=== PATIENT | male | born 1955 | race Caucasian/White ===

== ENCOUNTER 2017-04-04 07:28 | Outpatient (CLI) | payer BC ==
[~2017-04-04] VITALS: Ht 175.3 cm; Wt 104.5 kg
--- NOTE | ~2017-04-04 | OP ---
PATIENT NAME: NANO SOLORZANO MEDICAL RECORD: [id number] :51 LOCATION:[facility] ADMISSION DATE: SURGEON: CAMILO OTERO MD DATE OF OPERATION: 04/04/2017 PROCEDURES: 1. PTCA stent LAD. 2. Intravascular ultrasound of the LAD. 3. Left heart catheterization. 4. Selective coronary angiography. 5. Left ventriculogram. INDICATION: Angina and coronary artery disease. PROCEDURE IN DETAIL: After informed consent was obtained and after detailed explanation of risks, benefits as well as alternative therapies, the patient elected to proceed with angiogram and angioplasty. The right femoral area was prepped and draped in normal sterile fashion. The right femoral artery was cannulated via modified Seldinger technique with placement of 6-Samoan sheath. All catheters exchanged through this sheath. FINDINGS: Left ventriculogram was performed in standard 30-degree HAINES view, reveals good cardiac wall motion throughout all segments. Overall ejection fraction estimated at 60%. SELECTIVE CORONARY ANGIOGRAPHY: 1. Left main showed no significant angiographic disease. 2. Left anterior descending has previously placed stent. This is widely patent. However, after this, there is a greater than 70% stenosis confirmed by intravascular ultrasound. 3. Left circumflex has mild irregularities, no flow-limiting stenosis. 4. The right coronary has previously placed stent. This is widely patent with no significant restenosis. No disease elsewise throughout. PTCA STENT OF THE LAD: The stent used was a 2.5 x 22 mm Integrity taken to 17 atmospheres. Result was 0% residual stenosis. OVERALL IMPRESSION: Successful percutaneous transluminal coronary angioplasty stent of the left anterior descending going from greater than 70% initial stenosis to 0% residual stenosis. TRANSINT:[id number] Voice Confirmation ID: [id number] DOCUMENT ID: [id number] CAMILO OTERO MD at 1800 CC: [id number] DICTATION DATE: 04/04/17 0940 HEEL VARNISHER: 04/04/17 1200 DEP CLI 04/04/[address] [address]
--- NOTE | ~2017-04-04 | HEMODYNAMI ---
PATIENT:NANO SOLORZANO MEDICAL RECORD: [id number] : 51 [id number] ADMISSION DATE: 04/04/17 Generatedon:04/04/20179:43 Patient name: NANO SOLORZANO Patient #: [id number] SSN: : 1955 Date of study: 04/04/2017 Page: Of Hemodynamic Procedure Report Patient Data Patient Demographics Procedure consent was obtained First Name: NANO Gender: Male Last Name: JEANINE : 1955 Middle Initial: C Age: 61 year(s) Patient #: [id number] Race: Unknown Additional ID: [id number] Contact details Address: [address] [place] [address] State: [place] City: [facility] Zip code: [address] Past Medical History Allergies Allergen Reaction Date Comments Reported Other allergy 04/04/2017 PRAVASTATIN Admission Admission Data Admission Date: 04/04/2017 Admission Time: 7:28 Height (in.): 5.9 BSA: 0.38 (m2) Height (cm.): 14.99 BMI: 5008.94 (kg/m2) Weight (lbs.): 248 Weight (kg.): 112.49 Lab Results Lab Result Date: 04/04/2017 Lab Result Time: 8:00 Biochemistry Name Units Result Min Max BUN mg/dl 16 --(---*)-- 7 18 Creatinine mg/dl 1.4 --(----)*- 0.6 1.3 Procedure Procedure Types Cath Procedure Diagnostic Procedure LHC LH w/Coronaries FFR/IVUS Intra-Coronary IVUS Initial PCI Procedure Coronary Stent Coronary Stent Initial Miscellaneous Procedures Moderate Sedation up to 15 minutes Procedure Description Procedure Date Procedure Date: 04/04/2017 Procedure Start Time: 9:24 Procedure End Time: 9:43 Procedure Staff Name Function Lopez Marcano MD Performing Physician Destiny Taylor RT Monitor Anshu Jarquin RT Scrub Idris Tristan RN Nurse Procedure Data Cath Procedure Fluoroscopy Diagnostic fluoroscopy Total fluoroscopy dose: 750 dose: 750 mGy mGy Contrast Material Contrast Material Type Amount (ml) Isovue 300 107 Entry Location Entry Primary Successful Side Size Upsize Upsize Entry Closure Succes sful Closure Location (Fr) 1 (Fr) 2 (Fr) Remarks Device Remarks Femoral Right 5 Fr 6 Fr Exoseal artery Short Estimated blood loss: 10 ml Diagnostic catheters Device Type Used For End Catheter Placement MULTIPACK Pigtail 5 Fr Procedure catheter MULTIPACK JL 4.0 5Fr Procedure catheter MULTIPACK 3DRC 5Fr Procedure catheter Procedure Complications No complications Procedure Medications Medication Administration Route Dosage Oxygen NC 2 l/min Lidocaine 2% added to field 20 Heparin Flush Bag added to field 2 bags (1000units/500ml NS) 0.9% NaCl I.V. 100 ml/hr Versed I.V. 1 mg Fentanyl I.V. 50 mcg Versed I.V. 1 mg Fentanyl I.V. 50 mcg Heparin Bolus I.V. 4000 units Integrilin (Bolus I.V. 9.5 ml 2mg/ml) Versed I.V. 2 mg Plavix P.O. 600 mg Hemodynamics Rest BSA: 0.38 (m2) HGB: 16.2 (g/dl) O2 Consumption: Estimated: 42.63 (ml/min) O2 Con sumption indexed: Estimated:112.18 (ml/min/m) Heart Rate: 57 (bpm) Snapshots Pre Cath Intra NCS Post Cath Vital Signs Time Heart Resp SPO2 etCO2 NIBP (mmHg) Rhythm Pain Sedation Rate (ipm) (%) (mmHg) Status Level (bpm) 9:18:59 70 20 96 24.3 145/80(115) NSR 0 (11) 10(A) , No pain 9:23:39 73 19 96 0 130/70(91) NSR 0 (11) 10(A) , No pain 9:28:22 72 17 94 37.3 125/76(106) NSR 0 (11) 9(A) , No pain 9:33:05 72 20 96 26.6 125/75(94) NSR 0 (11) 9(A) , No pain 9:37:45 73 18 95 23.6 129/77(94) NSR 0 (11) 9(A) , No pain 9:42:28 73 15 96 27.4 129/78(100) NSR 0 (11) 10(A) , No pain Medications Time Medication Route Dose Verified Delivered Reason Notes Effectiveness by by 9:18:55 Oxygen NC 2 Lopez Washburnie used for l/min Jeet Tristan RN procedure 9:19:02 Lidocaine 2% added 20ml Lopezvalery Marroquin for local to vial Jeet Marcano MD anesthetic field 9:20:57 Heparin Flush added 2 Lopezvalery Marroquin used for Bag to bags Jeet Marcano MD procedure (1000units/500ml field NS) 9:21:06 0.9% NaCl I.V. 100 Lopez Steinberg Per physician ml/hr Jeet Tristan RN 9:23:32 Versed I.V. 1 mg Lopez Steinberg for sedation Jeet Tristan RN 9:23:38 Fentanyl I.V. 50 Lopez Steinberg for sedation mcg Jeet Tristan RN 9:26:38 Versed I.V. 1 mg Lopez Steinberg for sedation Jeet Tristan RN 9:26:42 Fentanyl I.V. 50 Lopez Steinberg for sedation mcg Jeet Tristan RN 9:30:05 Heparin Bolus I.V. 4000 Lopez Steinberg for verifie d units Jeet Tristan RN anticoagulation with dr marcano 9:32:37 Versed I.V. 2 mg Lopez Steinberg for sedation Jeet Tristan RN 9:35:34 Integrilin I.V. 9.5 Lopez Steinberg for wasted (Bolus 2mg/ml) ml Jeet Tristan RN antiplatelet 0.5 ml therapy of vial 9:42:53 Plavix P.O. 600 Lopez Steinberg for mg Jeet Tristan RN antiplatelet therapy Procedure Log Time Note 8:59:33 Patient Height : 5.9 inches 8:59:37 Patient Weight : 248 lbs 8:59:44 Idris Tristan RN sent for patient. Start room use. 8:59:45 Time tracking: Regular hours 8:59:49 Plan of Care:Hemodynamics will remain stable., Cardiac rhythm will remain stable., Comfort level will be maintained., Respiratory function will remain adequate., Patient/ family verbilizes understanding of procedure., Procedure tolerated without complication., Recovers from procedure without complications.. 8:59:52 Signed procedure consent form obtained from patient. 9:00:39 H&P Date Dictated: 03/14/2017 Within 30 days and on chart., H&P Addendum completed by physician on day of procedure. (MUST COMPLETE FOR ALL OUTPATIENTS). 9:00:56 Patient allergic to Other allergyPRAVASTATIN 9:01:32 Lab Result : Hemoglobin 16.2 g/dl 9:03:09 Lab Result : BUN 16 mg/dl 9:03:09 Lab Result : Creatinine 1.4 mg/dl 9:03:12 Lab results completed and on chart. 9:06:19 Patient received from Pre/Post Procedure Room to CCL 1 Alert and oriented. Tansferred to table in Supine position. 9:06:21 Warm blankets applied, and claudio hugger turned on for patient comfort. 9:06:21 Correct patient and procedure confirmed by team. 9:06:21 ECG and BP/O2 sat monitors applied to patient. 9:18:06 Vital chart was started 9:18:09 Baseline sample Acquired. 9:18:12 Rhythm: sinus rhythm 9:18:13 Full Disclosure recording started 9:18:14 Pre-procedure instructions explained to patient. 9:18:14 Pre-op teaching completed and patient verbalized understanding. 9:18:15 Family in patients room. 9:18:17 Patient NPO since Midnight. 9:18:20 Is patient on blood thinner?Yes 9:18:23 ACC The patient was administered the following blood thiners within the last 24 hours: Coumadin 9:18:53 held since 18 INR 1 9:18:55 Oxygen 2 l/min NC was administered by Idris Tristan RN; used for procedure; 9:18:56 Patient diabetic? No. 9:18:59 Previous problem with sedation/anesthesia? No ? 9:19:01 Snore? Yes 9:19:02 Lidocaine 2% 20ml vial added to field was administered by Lopez Marcano MD; for local anesthetic; 9:19:02 Sleep apnea? No 9:19:03 Deviated septum? No 9:19:04 Opens mouth fully? Yes 9:19:05 Sticks out tongue? Yes 9:19:07 Airway obstruction? No ? 9:19:09 Dentures? No ? 9:19:16 Pre procedure: right dorsailis pedis pulse Doppler 9:19:19 Patient pain scale 0/10 ?. 9:19:26 IV patent on arrival in left forearm with 0.9% NaCl at [facility]. 9:19:31 Right groin area was prepped with chlora-prep and draped in sterile fashion 9:19:32 Alarms reviewed by R. N. 9:19:33 Sharps counted by scrub and verified by R.N. 9:20:57 Heparin Flush Bag (1000units/500ml NS) 2 bags added to field was administered by Lopez Marcano MD; used for procedure; 9:21:06 0.9% NaCl 100 ml/hr I.V. was administered by Idris Tristan RN; Per physician; 9:21:22 Use device set Femoral Dx 9:21:23 ACIST Syringe (63835) opened to sterile field. 9:21:23 Bag Decanter (2002S) opened to sterile field. 9:21:25 ACIST Hand Control (00105) opened to sterile field. 9:21:25 ACIST Manifold (76282) opened to sterile field. 9:21:26 Tegaderm 4 x 4 (1626W) opened to sterile field. 9:21:28 Medline Cath Pack ([id number]) opened to sterile field. 9:21:29 SHEATH 5FR [place] (MYB240) opened to sterile field. 9:21:30 DIAGNOSTIC WIRE .035 260cm J wire (139190) opened to sterile field. 9:21:32 PERCUTANEOUS ENTRY 19GA needle opened to sterile field. 9:21:33 DIAGNOSTIC Multipack 5Fr catheter set (MF7124) opened to sterile field. 9:22:39 Zero performed for pressure channel P1 9:22:51 Zero performed for pressure channel P1 9:23:10 --------ALL STOP TIME OUT------ 9:23:15 Final Timeout: patient, procedure, and site verified with staff and physician. All members of the team are in agreement. 9:23:18 Right groin site verified by team. 9:23:20 Physical assessment completed. ASA score P 2 - A patient with mild systemic disease as per Lopez Marcano MD. 9:23:23 Sedation plan: IV Moderate Sedation Medication:Versed, Fentanyl 9:23:32 Versed 1 mg I.V. was administered by Idris Tristan RN; for sedation; 9:23:38 Fentanyl 50 mcg I.V. was administered by Idris Tristan RN; for sedation; 9:24:33 Procedure started. 9:24:36 Local anesthetic to right femoral artery with Lidocaine 2% by Lopez Marcano MD.INITIAL ACCESS ONLY 9:25:08 A 5 Fr sheath was inserted into the Right Femoral artery 9:25:18 A MULTIPACK Pigtail 5 Fr catheter was advanced over the wire and used for Procedure. 9:25:21 LV gram done using HAINES 9:: Injector settings: Ml/sec: 10, Volume: 20, 9::53 EF : 50 % 9:25:54 Catheter removed. 9:26:01 A MULTIPACK JL 4.0 5Fr catheter was advanced over the wire and used for Procedure. 9::38 Versed 1 mg I.V. was administered by Idris Tristan RN; for sedation; 9::42 Fentanyl 50 mcg I.V. was administered by Idris Tristan RN; for sedation; 9::43 LCA angiography performed. 9:27:19 SHEATH 6FR [place] (RGZ193) opened to sterile field. 9:27:20 INFLATOR Merit BasixCompak (BO3699) opened to sterile field. 9:27:25 Taylor [place] Eag[place] IVUS Catheter (22670G) opened to sterile field. 9:27:31 Catheter removed. 9:27:49 A MULTIPACK 3DRC 5Fr catheter was advanced over the wire and used for Procedure. 9:28:16 RCA angiography performed. 9:28:28 Catheter removed. 9:29:05 Sheath upsized to a 6 Fr Short. 9:30:00 CHOICE PT Extra Support 182cm wire ([id number]) opened to sterile field. 9:30:05 Heparin Bolus 4000 units I.V. was administered by Idris Tristan RN; for anticoagulation; verified with dr marcano 9:30:06 GUIDE 6FR XBLAD 4.0 catheter ([id number]) opened to sterile field. 9:30:20 6 Fr XBLAD 4 guide catheter was inserted over the wire 9:30:23 CHOICE PT wire advanced. 9:30:57 Wire advanced across lesion. 9:31:16 IVUS catheter advanced over wire. 9:32:37 Versed 2 mg I.V. was administered by Idris Tristan RN; for sedation; 9:32:51 IVUS pass to LAD lesion performed. 9:32:56 IVUS catheter removed over wire. 9:35:34 Integrilin (Bolus 2mg/ml) 9.5 ml I.V. was administered by Idris Tristan RN; for antiplatelet therapy; wasted 0.5 ml of vial 9:35:34 Inflation Number: 1 A INTEGRITY RX 2.5 x 22 stent ([id number]) was prepped and advanced across the Mid LAD. The stent was deployed at 17 PITO for 0:10 (min:sec). 9:36:08 Stent catheter was removed intact over wire. 9:36:08 Wire removed. 9:36:09 Guide catheter removed. 9:36:17 EXOSEAL 6Fr (EX600) opened to sterile field. 9:36:37 Sheath removed intact; hemostasis achieved with Exoseal to the Right Femoral artery. 9:36:40 Procedure ended.(Physican Out) 9:37:40 Flurop Dose total: 750 9:37:40 Fluoroscopy dose: 750 mGy 9:37:43 Contrast amount:Isovue 300 107ml. 9:39:01 Post-op/insertion site Right Femoral artery dressed using a 4 x 4 and Tegaderm. 9:39:05 Post right femoral artery:stable, soft, clean and dry 9:39:13 Post procedure: right dorsailis pedis pulse Doppler. 9:39:20 Post-procedure physical assessment completed. ASA score P 2 - A patient with mild systemic disease as per Lopez Marcano MD. 9:39:22 Post procedure rhythm: unchanged. 9:39:27 Estimated blood loss: 10 ml 9:39:28 Post procedure instruction explained to patient.Patient verbalizes understanding. 9:39:29 Patient needs reinforcement of post procedure teaching. 9:39:51 Procedure type changed to Cath procedure, Diagnostic procedure, LHC, LHC w/Coronaries, FFR/IVUS, Intra-Coronary IVUS Initial, PCI procedure, Coronary Stent, Coronary Stent Initial, Miscellaneous Procedures, Moderate Sedation up to 15 minutes 9:41:31 Procedure and supply charges have been captured, reviewed, submitted and are correct. 9:41:34 Procedure Complication : No complications 9:42:53 Plavix 600 mg P.O. was administered by Idris Tristan RN; for antiplatelet therapy; 9:43:01 Vital chart was stopped 9:43:02 See physician's report for complete and final results. 9:43:04 Report given to Pre/Post Procedure Room. 9:43:08 Patient transfered to Pre/Post Procedure Room with Bed. 9:43:10 Procedure ended. 9:43:10 Full Disclosure recording stopped 9:43:13 End room use (Document Last) Intervention Summary Intervention Notes Time ActionType Lesion and Equipment Action# Pressure Duration Attributes Used 9:35:34 Place stent Mid LAD INTEGRITY RX 1 17 00:10 2.5 x 22 stent ([id number]) Device Usage Item Name Manufacture Quantity Catalog Number Hospital Part Current Mini mal Lot# / Charge Number Stock Stock Serial# Code ACIST Acist 1 73920 787320 127121 259885 20 Syringe Medical (25541) Systems Inc Bag Decanter Microtek 1 2001S 290019 44344 500285 5 (2001S) Medical Inc. ACIST Hand Acist 1 30337 709794 888729 621490 5 Control Medical (48109) Systems Inc ACIST Acist 1 69744 743787 930227 113106 5 Manifold Medical (03680) Systems Inc Tegaderm 4 x 3M 1 1626W 180942 870679 514769 5 4 (1626W) Medline Cath Cardinal 1 [id number] 885600 77016 309493 5 Pack Health ([id number]) SHEATH 5FR Terumo 1 HAM999 252584 626803 808511 40 [place] (BWF793) DIAGNOSTIC St Sigifredo 1 906243 462987 287378 400937 30 WIRE .035 260cm J wire (439723) PERCUTANEOUS [place] Medical 1 J70203 574050 237061 5 ENTRY 19GA needle DIAGNOSTIC Cardinal 1 PG2713 055018 91551 731946 30 Multipack Health 5Fr catheter set (XO0733) MULTIPACK Cardinal 1 796387 5 Pigtail 5 Fr Health catheter MULTIPACK JL Cardinal 1 121669 5 4.0 5Fr Health catheter SHEATH 6FR Terumo 1 LZB663 439693 622034 179331 40 [place] (QDC923) INFLATOR Merit 1 VG7845 907976 030679 826666 15 [facility] Medical BasixCompak (WC9316) Taylor Taylor 1 62940W 631414 092612 703406 8 [place]ag[place] IVUS Catheter (41416S) MULTIPACK Cardinal 1 316796 5 3DRC 5Fr Health catheter GUIDE 6FR Cardinal 1 [id number] 834978 096241 992409 3 XBLAD 4.0 Health catheter (29817057) INTEGRITY RX Medtronic 1 [id number] 229430 093372 421318 5 [id number] 2.5 x 22 stent ([id number]) EXOSEAL 6Fr Cardinal 1 EX600 966593 531338 251495 10 (EX600) Health CHOICE PT [place] 1 [id number] 561213 117600 047719 5 Extra Scientific Support 182cm wire ([id number]) Signature Audit [place] Stage Time Signature Unsigned Intra-Procedure 04/04/2017 Destiny Taylor 9:43:31 AM RT(R) Signatures Monitor : Destiny Taylor Signature : RT Date : Time : [address] [place] [address]
[2017-04-04] MEDS ORDERED: COREG6.25 MG PO (08:14)
[2017-04-04] MEDS ORDERED: BAYER CHEWABLE81 MG PO (08:14)
[2017-04-04] MEDS ORDERED: COUMADIN7.5 MG PO (08:15)
[2017-04-04] MEDS ORDERED: COUMADIN5 MG PO (08:15)
[2017-04-04] MEDS ORDERED: FLOMAX0.4 MG PO (08:16)
[2017-04-04 08:33] VITALS: BP 140/79; Ht 175.3 cm; Wt 104.5 kg
[2017-04-04 08:36] LABS: BASOPHILS 0.5 % (0-2); EOSINOPHILS 5.3 % (0-7); HEMATOCRIT 46.2 % (42.0-54.0); HEMOGLOBIN 16.2 g/dL (13.5-17.5); IMMATURE GRANULOCYTES 0.7 % (0-5); LYMPHOCYTES 31.9 % (15-50); MCH 30.9 pg (26.0-34.0); MCHC 35.1 g/dL (31.0-37.0); MCV 88.2 fL (80.0-100.0); MEAN PLATELET VOLUME 10.4 fL (7.4-10.4); NEUTROPHILS 51.6 % (40-80); PLATELET COUNT 156 10x3/uL (130-400); RBC 5.24 10x6/uL (4.20-6.10); WBC 5.5 10x3/uL (4.8-10.8)
[2017-04-04 08:50] LABS: INR 1.05 (0.85-1.17); PROTIME 13.3 SECONDS (11.6-15.0)
[2017-04-04 08:54] LABS: ANION GAP 14.8 mmol/L (8-16); CALCIUM 8.8 mg/dL (8.5-10.1); CARBON DIOXIDE 24.4 mmol/L (21.0-32.0); CREATININE - SERUM 1.4 mg/dL (0.6-1.3); POTASSIUM - SERUM 4.2 mmol/L (3.5-5.1)
[2017-04-04] MEDS ORDERED: PLAVIX75 MG PO (11:23)
== END 2017-04-04 13:30 | disposition home or self-care (01) ==
LOC: D.CATH 07:28
PROVIDERS: Internal Medicine Interventional Cardiology
DX: I25.119 Atherosclerotic heart disease of native coronary artery with unspecified angina pectoris (principal); Z01.812 Encounter for preprocedural laboratory examination